=== PATIENT | female | born 1970 | race Caucasian/White ===

== ENCOUNTER 2022-04-30 20:09 | Observation (INO) ==
[2022-04-30] MEDS ORDERED: 0.9 % Sodium Chloride 1,000 ML IVC ONE (20:49)
[2022-04-30] MEDS ORDERED: Iopamidol - 370 500 ML MLS IVP ONE (20:49)
[2022-04-30 21:19] LABS: Basophils # 0.1 K/mcL (0.0-0.2); Basophils % 0.6 %; Eosinophils # 0.1 K/mcL (0.0-0.6); Eosinophils % 0.5 %; Hematocrit 46.9 % (35.3-44.9); Hemoglobin 15.2 g/dL (11.5-15.4); Immature Granulocytes % 0.4 % (0-4); Lymphocytes # 1.9 K/mcL (0.6-4.6); Lymphocytes % 19.1 %; Mean Corpuscular HGB Conc 32.4 g/dL (31.6-35.5); Mean Corpuscular Hemoglobin 29.5 pg (28.0-33.3); Mean Corpuscular Volume 91.1 fL (83.0-100.0); Mean Platelet Volume 10.6 fL (9.4-12.4); Monocytes # 0.9 K/mcL (0.0-1.3); Neutrophils # 7.2 K/mcL (1.6-8.9); Platelet Count 425 K/mcL (140-400); Red Blood Count 5.15 M/mcL (3.82-4.97); Red Cell Distribution Width 14.2 % (11.5-14.5); Segmented Neutrophils % 70.4 %; White Blood Count 10.2 K/mcL (4.3-11.1)
[2022-04-30 21:40] LABS: Bilirubin,Urine Negative (Negative); Blood,Urine Moderate (Negative); Clarity,Urine Clear (Clear); Color,Urine Yellow (Yellow); Glucose,Urine (UA) 30 mg/dL (Normal); Hyaline Casts,Urine Moderate per lpf (None Seen); Ketones,Urine Negative (Negative); Leukocyte Esterase,Urine Negative (Negative); Mucus,Urine Few per lpf (None-Few); Nitrite,Urine Negative (Negative); PH,Urine 6.5 pH Units (5.0-8.0); Protein,Urine 100 mg/dL (Neg-Trace); RBC,Urine 15-30 per hpf (0-3); Renal Epithelial Cells,Urine Few per hpf (None-Few); Specific Gravity,Urine > 1.030 (1.010-1.025); Squamous Epithelial Cell,Urine Few per hpf (None-Few); Transitional Epi Cells,Urine Few per hpf (None-Few)
[2022-04-30 21:53] LABS: Alanine Aminotransferase 16 Units/L (7-52); Albumin/Globulin Ratio 0.7 (1.1-2.2); Alkaline Phosphatase 101 Units/L (34-104); Aspartate Amino Transferase 20 Units/L (13-39); BUN/Creatinine Ratio 13 (6-26); Bilirubin,Total 0.3 mg/dL (0.3-1.0); Blood Urea Nitrogen 7 mg/dL (6-20); Calcium 8.3 mg/dL (8.6-10.3); Carbon Dioxide 30 mEq/L (23-29); Chloride 88 mEq/L (98-107); Globulin 4.4 g/dL (2.4-3.5); Glucose 211 mg/dL (70-105); Magnesium 1.4 mg/dL (1.6-2.6); Osmolality,Calculated 276 (280-300); Potassium 2.5 mEq/L (3.5-5.1); Sodium 131 mEq/L (136-145); Total Protein 7.4 g/dL (6.4-8.9); Troponin I < 0.03 ng/mL (< 0.04)
[2022-04-30 21:58] LABS: Thyroid Stimulating Hormone 7.534 mcIU/mL (0.340-5.600)
[2022-04-30] MEDS ORDERED: Magnesium Oxide 400 MG TABLET PO STA (22:04)
[2022-04-30] MEDS ORDERED: 0.9 % Sodium Chloride 1,000 ML IV ONE (22:11)
[2022-05-01] MEDS ORDERED: Divalproex (12 HR) 500 MG TABLET PO STA (02:06)
[2022-05-01] MEDS ORDERED: QUEtiapine Fumarate 100 MG TABLET PO STA (02:06)
[2022-05-01] MEDS ORDERED: methylPREDNISolone 125 MG/2 ML VIAL IVP ONE (02:10)
[2022-05-01 02:20] LABS: Mixed Venous Blood pCO2 46 mmHg (44-46); Mixed Venous Blood pH 7.39 pH Units (7.34-7.36); Mixed Venous Blood pO2 47 mmHg (35-45)
[2022-05-01 04:32] LABS: BUN/Creatinine Ratio 9 (6-26); Blood Urea Nitrogen 4 mg/dL (6-20); Calcium 7.1 mg/dL (8.6-10.3); Carbon Dioxide 29 mEq/L (23-29); Chloride 94 mEq/L (98-107); Glucose 224 mg/dL (70-105); Osmolality,Calculated 274 (280-300); Potassium 3.2 mEq/L (3.5-5.1); Sodium 130 mEq/L (136-145)
[2022-05-01] MEDS ORDERED: Naloxone 0.4 MG/ML INJ IVP PRN (08:55)
[2022-05-01] MEDS ORDERED: Ondansetron 4 MG/2 ML VIAL IVP PRN (08:55)
[2022-05-01] MEDS ORDERED: Ipratropium/Albuterol Neb 3 ML IH PRN (08:58)
[2022-05-01] MEDS ORDERED: *HR* Dextrose 50 % in Water (Syg) 50 ML SYRINGE IVP PRN (08:59)
[2022-05-01] MEDS ORDERED: Dextrose Gel 15 GM/37.5 ML TUBE PO PRN ×2 (08:59)
[2022-05-01] MEDS ORDERED: D5% in Water 1,000 ML IVC PRN (08:59)
[2022-05-01] MEDS ORDERED: levoFLOXacin 750 MG/150 ML 750 MG/150 ML BAG IVPB SCH (09:45)
[2022-05-01] MEDS ORDERED: Budesonide/Formoterol 160/4.5 1 PUFF INH IH SCH (11:30)
[2022-05-01] MEDS ORDERED: Insulin LISPRO 300 UNITS/3 ML VIAL SUBQ SCH (11:30)
[2022-05-01] MEDS ORDERED: *HR* Heparin 5,000 UNIT/ML VIAL SQ SCH (14:00)
[2022-05-01 15:03] VITALS: BP 109/76; PULSE 116; TEMP 97.7; O2SAT 90
[2022-05-01] MEDS ORDERED: methylPREDNISolone 125 MG/2 ML VIAL IVP SCH (16:00)
[2022-05-01] MEDS ORDERED: Ipratropium/Albuterol Neb 3 ML IH SCH (16:00)
[2022-05-01] MEDS ORDERED: Insulin DETEMIR 100 UNIT/ML X5UNITS SUBQ SCH (21:00)
== END 2022-05-01 16:47 | disposition short-term general hospital (02) ==
LOC: 3BNU 20:09 → EMEROOARM 20:09 → 3BNU 05-01 10:03
PROVIDERS: ADMIT Internal Medicine; ATTEND Internal Medicine